=== PATIENT | male | born 1975 | race Caucasian/White ===

== ENCOUNTER → 2021-08-24 | Day surgery (SDC) | payer OTHER ==
[~2021-08-24] VITALS: Ht 170 cm; Wt 172.4 kg
[~2021-08-24] MED LIST: ANORO ELLIPTA1 EACH INH; ARNUITY ELLIP100 MCG INH; COLACE100 MG PO; COZAAR50 MG PO; DAILY VITAMIN1 EAC2 PO; DALIRESP500 MCG PO; DUONEB 2.5-0.5M1 AMP INH; GABAPENTIN300 MG PO; GABAPENTIN600 MG PO; IBUPROFEN800 M1 PO; LASIX20 MG PO; MELOXICAM15 MG PO; MICRO-K10 MEQ PO; OMEPRAZOLE40 MG PO; OS-CAL+D500 MG PO; OXYCODONE-ACET1 EAC1 PO; OXYGEN; OXYGEN IN; PERCOCET 5-3251 EACH PO; PERCOCET 5/3251 TAB PO; SINGULAIR10 MG PO; UROCIT-K10 MEQ PO; VALSARTAN160 MG PO; VENTOLIN HFA IN18 GM INH; VITAMIN D-32000 UNIT PO; VITAMIN D325 MC1 PO
== END | disposition home or self-care (01) ==
LOC: FAS 06:02
DX: K31.7 Polyp of stomach and duodenum (principal); K21.00 Gastro-esophageal reflux disease with esophagitis, without bleeding; K29.60 Other gastritis without bleeding; K44.9 Diaphragmatic hernia without obstruction or gangrene; K80.20 Calculus of gallbladder without cholecystitis without obstruction; E66.01 Morbid (severe) obesity due to excess calories; J44.1 Chronic obstructive pulmonary disease with (acute) exacerbation; I10 Essential (primary) hypertension; R73.03 Prediabetes; M19.90 Unspecified osteoarthritis, unspecified site; Z90.3 Acquired absence of stomach [part of]; Z88.0 Allergy status to penicillin; Z91.011 Allergy to milk products; Z87.891 Personal history of nicotine dependence
CPT/HCPCS: J2250; J2704; J7120

== ENCOUNTER → 2021-09-21 | Day surgery (SDC) | payer OTHER ==
[~2021-09-21] VITALS: Ht 170.2 cm; Wt 172.4 kg
[~2021-09-21] MED LIST changes: +ACETAMINOPHEN500 M1 PO; +CIPRO500 MG PO; +METRONIDAZOLE500 MG PO; +OXY-IR 5MG5 MG PO
[2021-09-21 10:13] LABS: ALBUMIN 3.9 g/dL (3.4-5.0); BILIRUBIN - TOTAL 0.7 mg/dL (0.2-1.0); BUN/CREAT RATIO (CALC) 18.8 RATIO; CREATININE 0.85 mg/dL (0.67-1.17); GLOBULIN (CALCULATION) 3.2 g/dL; POTASSIUM 3.9 mmol/L (3.5-5.1); TOTAL PROTEIN 7.1 g/dL (6.4-8.2)
== END | disposition home or self-care (01) ==
LOC: FAS 09:01
PROVIDERS: Student in an Organized Health Care Education/Training Program
DX: K80.10 Calculus of gallbladder with chronic cholecystitis without obstruction (principal); I10 Essential (primary) hypertension; J44.9 Chronic obstructive pulmonary disease, unspecified; K21.9 Gastro-esophageal reflux disease without esophagitis; G47.33 Obstructive sleep apnea (adult) (pediatric); Z99.81 Dependence on supplemental oxygen; Z88.0 Allergy status to penicillin; Z91.011 Allergy to milk products; Z79.899 Other long term (current) drug therapy
CPT/HCPCS: 36415; 80053; 82150; 83690; 93005; J1100; J1170; J1335; J1644; J2250; J2405; J2704; J2710; J3010; J7120